=== PATIENT | female | born 1975 | race Caucasian/White ===

== ENCOUNTER 2022-10-25 18:01 | Emergency (ER) | payer BC, MEDICAID ==
[2022-10-25] MEDS ORDERED: Ketorolac 30 MG/ML SDV IM ONE (19:46)
[2022-10-25 20:21] VITALS: BP 123/90; PULSE 73
== END 2022-10-25 20:07 | disposition home or self-care (01) ==
LOC: DL.ED 18:01
DX: M24.011 Loose body in right shoulder (principal); E10.9 Type 1 diabetes mellitus without complications; Z88.1 Allergy status to other antibiotic agents; Z88.8 Allergy status to other drugs, medicaments and biological substances
CPT/HCPCS: 73030-RT; 96372; 99283; J1885